=== PATIENT | male | born 1965 | race African-American/Black ===

== ENCOUNTER → 2021-07-18 02:59 | Outpatient (CLI) | payer BC, SELFPAY ==
[2021-07-18 13:02] LABS: SARS-CoV-2 RNA PCR Negative
== END ==
PROVIDERS: Visit Provider Internal Medicine Gastroenterology
DX: Z01.812 Encounter for preprocedural laboratory examination (principal); Z20.822 Contact with and (suspected) exposure to COVID-19
CPT/HCPCS: C9803; U0003; U0005

== ENCOUNTER → 2021-08-30 00:05 | Outpatient (CLI) | payer BC, SELFPAY ==
[2021-08-30 14:15] LABS: SARS-CoV-2 RNA PCR Negative
== END ==
PROVIDERS: Visit Provider Internal Medicine Gastroenterology
DX: Z01.812 Encounter for preprocedural laboratory examination (principal); Z20.822 Contact with and (suspected) exposure to COVID-19
CPT/HCPCS: C9803; U0003; U0005

== ENCOUNTER 2021-09-03 00:36 | Day surgery (SDC) | payer BC, SELFPAY ==
[2021-07-14 14:03] VITALS: BMI 25.9
--- NOTE | 2021-07-21 12:11 | SUR.PREOP ---
Patient arrived and stated he did not drink any of the prep. Stated he was confused on the instructions. Call to Dr Lizarraga- tra to discharge and schedule the patient for another day. RN went through written instructions thoroughly and patient states he will call the office to reschedule.
--- NOTE | 2021-08-21 13:29 | PC.NURSE ---
Patient states no changes in health history and no home medications. 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 Patient states he has his instructions at home and will call if he has any further questions.
[2021-09-03 10:38] VITALS: BP 105/73; PULSE 82; RESP 18; TEMP 36.2; O2SAT 100; BMI 25.7
[2021-09-03] MEDS: LACTATED RINGERS 1,000 ML 150 ML IV CONT (11:02)
--- NOTE | 2021-09-03 11:34 | WPDANESEPPF ---
Anes - Initial Pre Proc Eval Procedure: Operation Date: 09/03/21 11:30 Proposed Procedures p Screening Colonoscopy - Sanjay Faye MD Date/Time: 09/03/21 11:34 Surgeon: Sanjay Faye MD Pre Op Diagnosis: hx of colon ca Patient Data Age: 56 Gender: M Height: 1.75 m Weight: 79.2 kg Last Vital Signs Temp 97.2 F L 09/03/21 10:38 Pulse 82 09/03/21 10:38 Resp 18 09/03/21 10:38 BP 105/73 09/03/21 10:38 Pulse Ox 100 09/03/21 10:38 Allergies Allergy/AdvReac Type Severity Reaction Status Date / Time No Known Allergies Allergy Verified 09/03/21 10:46 Home Medications Medication Instructions Recorded Confirmed Type No Home Medications 07/14/21 09/03/21 History Patient hx anesthesia problems: none Family hx anesthesia problems: none Results Review: All pre-operative results and documents have been reviewed as part of the pre-operative evaluation. [facility] Social History Social History Smoking status: Never smoker Alcohol intake: never Substance use: current Substance use type: marijuana Other substance usage details: Daily Living arrangements: alone Spiritual care concerns: No Anes - Eval Final PreProcedure Day of Procedure 09/03/21 11:34 Patient weight: normal Heart: regular rate and rhythm Lungs: clear to auscultation Airway: Mallampati scale class II Neurological: alert and oriented Last oral intake: >/= 8 hours ASA classification: III Emergent: no Anesthetic plan: proceed Anesthesia type and monitoring: general GIVS and standard monitoring Results Review: All pre-operative results and documents have been reviewed as part of the pre-operative evaluation. Informed Consent: The patient's anesthetic plan and its attendant risks and benefits were discussed with the patient/family/POA. Questions were solicited and answers provided to the satisfaction of the patient/family/POA.
--- NOTE | 2021-09-03 11:48 | PM.HPGS ---
History of Present Illness History of Present Illness Consent: Risks, benefits, and alternatives have been discussed and questions answered. Patient agrees to proceed with procedure. Chief complaint: hx of colon ca Narrative: Heladio Davis is a 56 year old male with colon cancer s/p rt hemicolectomy 04/2020, did not need further treatment. Review of Systems Constitutional: Constitutional: Denies headache(s) and Denies weakness Eyes: Eyes: Denies blurry vision ENT: Reports Normal hearing present, Denies headache(s) and Denies neck pain Cardiovascular: Cardiovascular: Denies chest pain and Denies dyspnea Respiratory: Respiratory: Denies dyspnea Gastrointestinal: Gastrointestinal: Reports no additional gastrointestinal complaints Genitourinary: Genitourinary: Denies dysuria Musculoskeletal: Musculoskeletal: Denies neck pain Integumentary/Breasts: Skin/Breast: Denies dry skin Neurologic: Reports Normal hearing present, Denies headache(s) and Denies weakness Psychiatric: Psychiatric: Denies anxiety Endocrine: Endocrine: Denies change in body appearance Hematologic/Lymphatic: Hematologic/Lymphatic: Denies easy bleeding Allergic/Immunologic: Allergic/Immunologic: Denies urticaria PMFSH Past Medical History Medical History (Updated 09/03/21 @ 11:48 by Sanjay Faye MD) Colon cancer Social History Social History Smoking status: Never smoker Alcohol intake: never Substance use: current Substance use type: marijuana Other substance usage details: Daily Living arrangements: alone Spiritual care concerns: No Meds Home Medications and Allergies Home Medications Medication Instructions Recorded Confirmed Type No Home Medications 07/14/21 09/03/21 History Allergies Allergy/AdvReac Type Severity Reaction Status Date / Time No Known Allergies Allergy Verified 09/03/21 10:46 Vital Signs Vital Signs - 24 hr 09/03/21 10:38 Temperature 97.2 F L Pulse Rate 82 Respiratory Rate 18 Blood Pressure 105/73 Pulse Oximetry 100 Exam Const: General: comfortable and no acute distress HENMT: General nose exam: Normal nares present Eyes: General: appearance normal, both eyes and all related structures Neck: Neck: no JVD Resp: Auscultation: clear to auscultation bilaterally Cardio: Rate: regular rate Rhythm: regular rhythm GI: Inspection: non-distended GI Palp: Yes Soft to palpation Skin: General skin exam: normal color Neuro: General: gait normal Speech: normal speech Extrem: General: normal to inspection Psych: Mental Status: mental status grossly normal Assessment and Plan Assessment and plan (1) Colon cancer: Code(s): C18.9 - Malignant neoplasm of colon, unspecified Status: Acute Assessment and Plan: due to have colonoscopy
[2021-09-03 12:14] VITALS: BP 118/76; PULSE 82; RESP 18; O2SAT 100
[2021-09-03 12:24] VITALS: BP 109/76; PULSE 74; RESP 14; O2SAT 98
[2021-09-03 12:34] VITALS: BP 108/76; PULSE 64; RESP 12; O2SAT 100
== END 2021-09-03 12:50 | disposition home or self-care (01) ==
PROVIDERS: Visit Provider Internal Medicine Gastroenterology
PROC: 0DJD8ZZ Inspection of Lower Intestinal Tract, Via Natural or Artificial Opening Endoscopic (ICD-10-PCS; CPT 45378; principal; 2021-09-03 11:30)
DX: Z08 Encounter for follow-up examination after completed treatment for malignant neoplasm (principal); D12.4 Benign neoplasm of descending colon; K64.8 Other hemorrhoids; Z85.038 Personal history of other malignant neoplasm of large intestine; Z98.0 Intestinal bypass and anastomosis status; Z90.49 Acquired absence of other specified parts of digestive tract; F12.90 Cannabis use, unspecified, uncomplicated
CPT/HCPCS: 45385; 88305; J2704; J7120

== ENCOUNTER 2024-11-23 01:23 | Day surgery (SDC) | payer OTHER, SELFPAY ==
[2024-10-25 10:33] VITALS: BMI 23.7
--- OUTSIDE RECORDS SUMMARY | 2024-11-16 01:49 | XMS_ITS | Encounter Summary ---
Author Organization [facility] Address [address] [place] [address] Phone Care Team Providers Care Traveling Engineer Name Role Phone Provider, Unknown Primary Care Provider Unavaila ble Reason for Visit * Reason Onset Date Comments Prior Authorization 10/16/2020 CT A/P JUDI L INFO Encounter Details Date Type Department Care Team ([facility] Contact Info) Description 10/16/2020 Telephone [facility] [address] [place] [address] Wicho Joyce MD [address] [place] [address] Prior Authorization (CT A/P DENIAL INFO) Social History Tobacco Use Types Packs/Day Years Used Date Smoking Tobacco: Never Smokeless Tobacco: Never Alcohol Use Standard Drinks/Week Comments Yes 0 (1 standard drink = 0.6 oz pur e alcohol) socially PHQ-2 Answer Date Recorded Total Score - Questions 1-9 0 07/08 Sex and Gender Information Value Date Recorded Sex Assigned at Not on file 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 Joyce p2p for CT the test was denied. * Telephone Encounter - Praveen Brown RN - 10/21/2020 8:38 AM CDT Peer to Peer scheduled for Wednesday10/21/20 @ 3:[address] Mireille Leblanc. * Telephone Encounter - Praveen Bronw RN - 10/17/2020 3:40 PM CDT Images from the original note were not included. Wicho Joyce MD Whittington, Melissa J.; Cc [facility] Nurse [place] 23 hours ago (4:38 PM) MW Ok for peer to peer Message text * Telephone Encounter - Phuong De Anda - 10/16/2020 7:31 AM CDT Received denial from insurance medical office secretary on ct a/p stating imaging doesn't meet insurance medical policy. Insurance policy advises imaging is not supported for surveillance/follow up of Stage 1 colon & rectal adenocarcinoma. There is an option for for a peer to peer review. [phone] Ref#[id number] Id# [id number] How would you like to proceed? documented in this encounter Plan of Treatment Not on file documented as of this encounter Visit Diagnoses Not on filedocumented in this encounter Additional Health Concerns Assessment Noted Time PHQ-9 Depression Total Score: 0 07/23/19 3:21 PM CDT documented as of this encounter Care Teams Traveling Engineer Relationship Specialty Start Date End Date Provider, Unknown UNKNOWN PCP - General 04/30/20 documented as of this encounter
--- OUTSIDE RECORDS SUMMARY | 2024-11-16 01:49 | XMS_ITS | Clinical Summary ---
Author Organization [facility] Address [address] [place] [address] Care Team Providers Care Foot And Ankle Surgeon Name Role Phone Unavailable Primary Care Provider Unavailabl e Source Comments [facility],non-owned Affiliates and Associated Physician Practices is amultiple site organization consisting of ambulatory clinics and hospital sitesin [place], [place], [place] and [place]. This disclosure is being madepursuant to the Care Everywhere program and may not contain all information available regarding this patient. Last updated 18.[facility] Medications * Be aware that medications may not be up to date on this document. Alwaysverify current medications with the patient. ibuprofen (MOTRIN) 600 MG tablet Take 600 mg by mouth q8h PRN (Pain). 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 Gender Identity Not on file Sexual Orientation Not on file Last Filed Vital Signs Vital Sign Reading Time Taken Comments Blood Pressure 127/87 02/24/2017 8:30 AM CDT Pulse 80 02/24/2017 7:43 AM CDT Temperature 36.5 C (97.7 F) 02/24/2017 7:43 AM CDT Respiratory Rate 16 02/24/2017 7:43 AM CDT Oxygen Saturation 100% 02/24/2017 7:43 AM CDT Inhaled Oxygen Concentration - - Weight 79.4 kg (175 lb) 02/24/2017 7:43 AM CDT Height 177.8 cm (5' 10) 02/24/2017 7:43 AM CDT Body Mass Index 25.11 02/24/2017 7:43 AM CDT Plan of Treatment Health Maintenance Due Date Last Done Comments COLOGUARD (AGES 45-75) - COL ON CA SCREENING 1964 COLON MONITORING 1964 COLONOSCOPY - COLON CA SCREENING 1964 CT COLONOGRAPHY - COLON CA SCREENING 1964 Colorectal Cancer Screening 1964 FIT - COLON CA SCREENING 1964 FLEX SIG - COLON CA SCREENING 1964 LIPID TESTING 1964 HIV SCREENING 08/26/1979 HEPATITIS C SCREENING 08/21/1982 DTAP/TDAP/TD VACCINES (1 - Tdap) 08/26/1983 PNEUMOCOCCAL VACCINE 50+ (1 of 1 - PCV) 2014 ZOSTER VACCINE (1 of 2) 2014 COVID-19 VACCINE (1 - 2023-2 5 season) 2024 DEPRESSION SCREENING 05/10/2024 INFLUENZA VACCINE (Season Ended) 2025 Respiratory Syncytial Virus (RSV) Vaccine Pt: or over 60 yrs (1 - 1-dose 75+ series) 08/26/2039 HEPATITIS B VACCINE Aged Out No longe r eligible based on patient's age to complete this topic HIB VACCINE Aged Out No longer eligi ble based on patient's age to complete this topic HPV VACCINE Aged Out No longer eligi ble based on patient's age to complete this topic MENINGOCOCCAL (Group B) VACC INE SHARED DECISION-MAKING Aged Out No longer eligibl e based on patient's age to complete this topic MENINGOCOCCAL GROUPS A/C/Y/W VACCINE Aged Out No longer eligible b ased on patient's age to complete this topic
--- OUTSIDE RECORDS SUMMARY | 2024-11-16 01:49 | XMS_ITS | Clinical Summary ---
Author Organization [facility] Address [address], [facility] [address] [place] [address] Phone Care Team Providers Care Mounter Automatic Name Role Phone Provider, Unknown Primary Care Provider Unavaila ble Allergies No known active allergies Medications No known medications Active Problems Problem Noted Date Diagnosed Date Malignant neoplasm of ascending colon 10/23/2020 Family History Medical History Relation Name Comments Diabetes Maternal Grandmother Breast Cancer Mother Thyroid Cancer Mother Diabetes Sister Hypertension Sister Relation Name Status Comments Maternal Grandmother Mother Sister Social History Tobacco Use Types Packs/Day Years Used Date Smoking Tobacco: Never Smokeless Tobacco: Never Alcohol Use Standard Drinks/Week Comments Yes 0 (1 standard drink = 0.6 oz pur e alcohol) socially PHQ-2 Answer Date Recorded Total Score - Questions 1-9 0 04/09 Sex and Gender Information Value Date Recorded Sex Assigned at Not on file 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 Gender Identity Not on file Sexual Orientation Not on file Last Filed Vital Signs Vital Sign Reading Time Taken Comments Blood Pressure 120/70 04/23/2021 2:10 PM AURICULAR DETOXIFICATION SPECIALIST Pulse 91 04/23/2021 2:10 PM AURICULAR DETOXIFICATION SPECIALIST Temperature 36.1 C (97 F) 04/23/2021 2:10 PM AURICULAR DETOXIFICATION SPECIALIST Respiratory Rate 18 04/23/2021 2:10 PM AURICULAR DETOXIFICATION SPECIALIST Oxygen Saturation 98% 04/23/2021 2:10 PM AURICULAR DETOXIFICATION SPECIALIST Inhaled Oxygen Concentration - - Weight 79 kg (174 lb 1.6 oz) 04/23/2021 2:10 PM AURICULAR DETOXIFICATION SPECIALIST Height 176.5 cm (5' 9.5) 04/23/2021 2:10 PM AURICULAR DETOXIFICATION SPECIALIST Body Mass Index 25.34 04/23/2021 2:10 PM AURICULAR DETOXIFICATION SPECIALIST Plan of Treatment Health Maintenance Due Date Last Done Comments Hepatitis C Virus (HCV) Screening 1965 TdaP Immunization 1964 SARS-COV-2 Immunization (#1) 1969 Pneumococcal Immunization (5 0+ years) (1 of 2 - PCV) 08/26/1983 Zoster Immunization (1 of 2) 08/26/1983 Cologuard 2009 Colonoscopy 2009 Colorectal Cancer Screening 2009 Immunochemical Fecal Occult Blood 2009 Influenza Immunization (#1) 2025 Respiratory Syncytial Virus (RSV) Immunization (Adult) (1 - 1-dose 75+ series) 08/26/2039 Hepatitis B Immunization Aged Out No longer eligible based on patient's age to complete this topic Human Papillomavirus (HPV) Immunization Aged Out No longer eligible b ased on patient's age to complete this topic Meningococcal Immunization (ACWY) Aged Out No longer eligible based on patient's age to complete this topic Rotavirus Immunization Aged Out No lo nger eligible based on patient's age to complete this topic Insurance MEDICAID BL[place] Care Teams Mounter Automatic Relationship Specialty Start Date End Date Provider, Unknown UNKNOWN PCP - General 04/30/20
--- OUTSIDE RECORDS SUMMARY | 2024-11-16 01:49 | XMS_ITS | Encounter Summary ---
Author Organization [facility] Address [address] [place] [address] Phone Care Team Providers Care Roving Can Tender Name Role Phone Provider, Unknown Primary Care Provider Unavaila ble Encounter Details Date Type Department Care Team (Late st Contact Info) Description 10/22/2020 Telephone [facility] [address] [place] [address] Wicho Joyce MD [address] [place] [address] Social History Tobacco Use Types Packs/Day Years Used Date Smoking Tobacco: Never Smokeless Tobacco: Never Alcohol Use Standard Drinks/Week Comments Yes 0 (1 standard drink = 0.6 oz pur e alcohol) socially PHQ-2 Answer Date Recorded Total Score - Questions 1-9 0 10/08 Sex and Gender Information Value Date Recorded Sex Assigned at Not on file 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 No / Unsure 10/23/2020 9:15 AM CDT documented as of this encounter Miscellaneous Notes * Telephone Encounter - Crystal Deng - 10/22/2020 7:34 AM CDT I GOT A MESSAGE FROM [facility] THAT THE PEER TO PEER WAS DENIED BY THE INSURANCE. I DID NOTIFY THE PTAND CANCELED THE SCAN. DID YOU STILL WANT TO SEE THE PT FOR THE FOLLOW UP AND LABS? documented in this encounter Plan of Treatment Not on file documented as of this encounter Visit Diagnoses Not on filedocumented in this encounter Additional Health Concerns Assessment Noted Time PHQ-9 Depression Total Score: 0 07/23/19 21 3:21 PM CDT documented as of this encounter Care Teams Roving Can Tender Relationship Specialty Start Date End Date Provider, Unknown UNKNOWN PCP - General 04/30/20 documented as of this encounter
--- OUTSIDE RECORDS SUMMARY | 2024-11-16 01:49 | XMS_ITS | Data Portability ---
Author Organization [facility] Address [address] [place] [address] Assessment Encounter Date Assessment Date Assessment LastModified by Organization Details LastModified Time 06/08/2016 06/08/2016 Patient is clinically stable. Patient is compliant with care plan. Meds refill as needed. Education done as necessary. Follow up appointment as directed. [email or web address] Not available 06/08/2016 16:15:14 01/22/2022 01/22/2022 Pt presents as new pt for establishment of care. Routine exam, screenings and education completed: [email or web address] Not available 01/22/2022 14:27:55 Plan of Treatment Reminders Order Date Submit Date Provider Last Modified By Organization Details Last Modified Time Details Appointments None recorded. Lab HbA1c (hemoglob in A1c), blood 2020 021 [email or web address] In-Office Order, Internal Use Only DO Not Attach Compendium DO Not Attach Compendium, Do Not Delete/merge, [id number] 11:23:33 HbA1c (hemoglob in A1c), blood 2016 017 [facility] (Lab), [address], [place], [address], 7 07:13:49 cholester ol, total, serum 2016 [facility]17 [facility] [address], [place], [address], 7 20:43:59 PSA, complexed , serum or plasma 2016 017 [facility] (Lab), [address], [place], [address], 7 14:17:43 BMP, serum or plasma 2016 017 [facility] (Lab), [address], [place], [address], 7 20:44:54 RPR (rapid plasma reagin), serum 2016 017 [facility], [address], [address], [place], [address], 7 09:15:36 HIV (1+2) Ab screen, serum 2016 017 [facility], [address] [place] [address], [address], [place], [address], 7 08:23:51 hepatitis C Ab, signal-to -cutoff, serum or plasma 2016 017 [facility], [address], [address], [place], [address], 7 09:15:38 Referral ophthalmo logist referral 2021 022 [facility], [address] [place], [address], 2 15:55:11 podiatris t referral 2020 021 [email or web address] [facility], [address], [place], [address], 1 16:34:47 gastroent erologist referral 2016 017 [email or web address] Not available 11:55:14 Procedures None recorded. Surgeries None recorded. Imaging XR, toe(s), 2 or more view 2020 021 [facility] Scheduling, [address] [facility], [place], [address], 11:40:12 Medication Orders None recorded. Patient TargetsNo targets recorded. Patient Instructions Encounter Date Encounter Id Patient Instructions Last Modified By Organization Details Last Modified Time 02/13/2021 [id number] I personally saw and evaluated this patient together with the resident. I was present and available in the Family Medicine clinic to discuss this patient's care for the duration of the appointment. I agree with the resident's assessment and plan as documented with the following addendum: None. Dr. Esha Toledo MD Attending Physician. [email or web address] Not available 02/13/2021 12:28:27 01/22/2022 [id number] A healthy lifestyle: care instructions [email or web address] Not available 01/22/2022 14:19:26 body mass index: care instructions [email or web address] Not available 01/22/2022 14:19:26 -Patient instructed to call office with changes in condition -Pt instructed to present to the ED or urgent care with urgent concerns or urgent changes in condition. [email or web address] Not available 01/22/2022 14:18:54 -Discussed POC -Pt to follow up with routine f/u visit as discussed; RTC PRN and ANNUAL VISITS [email or web address] Not available 01/22/2022 14:19:09 Reason for Referral Referring Physician: Bruno Palacios, Internal Medicine, Encounter Date: 06/08/2016 Planned Giving Officer Referral for Pain of toe of left foot Referring Physician: Caden Harris, Crocodile Farmer, Encounter Date: 02/13/2021 Network Systems Integrator Referral for Blurring of visual image Referring Physician: Jeanie Massey, Family Medicine, Encounter Date: 01/22/2022 Results Created Date Observation Date Name Description Value Unit Range Abnormal Flag Note LastModifiedBy Organization Detail LastModifiedTime 06/08/19 17 06/08/2016 edy stero l, total , serum cholestrol 165.0 mg/dL 140.0- 200.0 Not Available [facility] (Lab) [address] [place], [address], 06/08/2016 20:43:59 06/08/19 17 06/08/2016 BMP, serum or plasm a glucose, serum 97 mg/dL 65-99 Not Available [facility] (Lab) [address], [place], [address], 06/08/2016 20:44:54 06/08/19 17 06/08/2016 BMP, serum or plasm a BUN 12 mg/dL 8-26 Not Available [facility] (Lab) [address] [place], [address], 06/08/2016 20:44:54 06/08/19 17 06/08/2016 BMP, serum or plasm a creat 1.00 mg/dL 0.50-1 .40 Not Available [facility] (Lab) [address] [place], [address], 06/08/2016 20:44:54 06/08/19 17 06/08/2016 BMP, serum or plasm a BUN/creatnin e ratio 12.0 Not Available [facility] (Lab) [address], [place], [address], 06/08/2016 20:44:54 06/08/19 17 06/08/2016 BMP, serum or plasm a sodium, serum 140.0 mEq/L 136.0- 144.0 Not Available [facility] (Lab) [address] [place], [address], 06/08/2016 20:44:54 06/08/19 17 06/08/2016 BMP, serum or plasm a potassium, serum 4.4 mmol/ L 3.5-5. 3 Not Available [facility] (Lab) [address] [place], [address], 06/08/2016 20:44:54 06/08/19 17 06/08/2016 BMP, serum or plasm a chloride, serum 101 mmol/ l 101-11 1 Not Available [facility] (Lab) [address] [place], [address], 06/08/2016 20:44:54 06/08/19 17 06/08/2016 BMP, serum or plasm a carbon dioxide total 28.6 mmol/ L 21.0-3 2.0 Not Available [facility] (Lab) [address] [place], [address], 06/08/2016 20:44:54 06/08/19 17 06/08/2016 BMP, serum or plasm a aniongp 15.0 mmol/ L Not Available [facility] (Lab) [address], [place], [address], 06/08/2016 20:44:54 06/08/19 17 06/08/2016 BMP, serum or plasm a calcium, serum 9.5 mg/dL 8.2-10 .0 Not Available [facility] (Lab) [address] [place], [address], 06/08/2016 20:44:54 06/08/19 17 06/08/2016 BMP, serum or plasm a osmol 279.0 mOsm/ L Not Available [facility] (Lab) [address], [place], [address], 06/08/2016 20:44:54 06/08/19 17 06/08/2016 BMP, serum or plasm a eGFR, AM 102 m/lmi n/1.7 3_m2 >=60 Not Available [facility] (Lab) [address] [place], [address], 06/08/2016 20:44:54 06/08/19 17 06/08/2016 BMP, serum or plasm a eGFR, non- AM 84 mL/mi n/1.7 3/m2 >=60 Not Available [facility] (Lab) [address], [place], [address], 06/08/2016 20:44:54 06/08/19 17 06/09/2016 HbA1c (hemo globi n A1c), blood hemoglobin A1C 5.9 % 4.8-5. 6 high . Pre-d iabet es: 5.7 - 6.4 Diabe ryan: >6.4 Glyce kenan contr ol for adult s with diabe ryan: <7.0 Not Available [facility] (Lab) [address] [place], [address], 06/09/2016 07:13:49 06/08/19 17 06/09/2016 HIV (1+2) Ab scree n, serum HIV 4TH generation Non Reacti ve non reacti ve Not Available [facility] (Lab) [address] [facility], [place], [address], 06/09/2016 08:23:51 06/08/19 17 06/09/2016 RPR (rapi d plasm a reagi n), serum RPR Non Reacti ve non reacti ve Not Available [facility] (Lab) [address] [facility], [place], [address], 06/09/2016 09:15:36 06/08/19 17 06/09/2016 hepat itis C virus Ab, serum hep C virus Ab <0.1 s/co_ ratio 0.0-0. 9 Negat tasha: < 0.8 Indet ermin ate: 0.8 - 0.9 Posit tasha: > 0.9 . The CDC recom mends that a posit tasha HCV antib orville resul t be follo wed up with a HCV Nucle ic Acid Ampli ficat ion test (5507 13). Not Available [facility] (Lab) [address] [facility], [place], [address], 06/09/2016 09:15:38 06/08/19 17 06/09/2016 PSA, compl exed, serum or plasm a PSA, complexed 0.5 NG/mL 0.0-3. 6 [facility] ) Metho dolog y . Resul ts for this test shoul d not be used as absol francesca evide nce of prese nce or absen ce of malig nant disea se witho ut confi rmati on of the diagn osis by other medic ally estab lishe d diagn ostic produ ct or proce dure. Value s obtai khanh with diffe rent metho ds or kits canno t be used inter [facility] . Not Available [facility] (Lab) [address] [place], [address], 06/09/2016 14:17:43 02/14/20 21 02/13/2021 HbA1c (hemo globi n A1c), blood HbA1c 5.8 Not Available In-Office Order Internal Use Only DO Not Attach Compendium DO Not Attach Compendium, Do Not Delete/merge, [id number] 02/13/2021 10:49:37 01/21/20 21 xr thumb RT 3V [facility] [place] [address] IMAGIN G NILS S: XR THUMB RT 3V DATE: 10:55 AM HISTOR Y: pain 55-yea r-old male with thumb pain for 2 weeks. Clicki ng sensat ion in the interp halang eal joint. No known specif ic injury . COMPAR ROSENDO: None. DISCUS UYEN and IMPRES UYEN: AP, obliqu e, and latera l views of the right thumb. Mild degene rative change s at the thumb metaca rpal phalan geal joint and interp halang eal joint. No appare nt acute fractu re or disloc ation. No erosio n or perios teal reacti on. Referr ed By: DINA OLGUIN Electr onical ly Signed By: Josiah Herrmann on 11:04 AM Interp reted By: Josiah Herrmann , 11:02 AM sherry [facility] [address] [facility], [place], [address], 01/20/2021 17:20:45 02/14/20 21 xr multi toe lt [facility] [place] [address] Examin ation: Left toes ACCESS ION: [id number] Exam date/t christine: 10:52 AM Reason For Exam: pain of toe Compar rosendo: None Techni que: 3 views of the second third and fourth left toes Findin gs: Minima l spurri ng the metata rsal phalan geal and interp halang eal joints is noted. No eviden ce of fractu re or disloc ation is seen. No erosiv e change s noted. ===== IMPRES UYEN:= ==== Minima l osteoa rthrit is of the toes. ====== ====== ====== === Referr ed By: Jeri mccoy ly Signed By: Parth Izaguirre MD on 4:02 PM Interp reted By: Parth Izaguirre MD, 4:[address], [place], [address], 01/22/2022 17:02:30 Result Notes None recorded. Problems Name Problem SNOMED Code Status Onset Date Resolution Date Notes Provider Name and Address Organization Details Recorded Time Body mass index 25-29 - overweight 030383460 Active DUANE LOMBARDO Attn: [address] [place], [address], [facility] 14:19:18 History of malignant neoplasm of colon 526910847 Active 022 DUANE LOMBARDO Attn: Ryley g,[address] [place], [address], [facility] 2 14:27:30 Problem Notes None recorded. Procedures Surgical History Date Name Laterality Status Provider Name and Address Organization Details Recorded Time 05/10/19 Arthroscopic Surgery completed Wilber Palacios MD Attn: Accounting,[address] [place], [address], [facility] 06/08/2016 16:03:38 05/08/20 surgical biopsy of colon completed Pedro Londono MA [facility] 01/22/2022 14:12:16 04/08/20 Xcapsl ctrc rmvl cplx wo ecp completed Pedro Londono MA [facility] 01/22/2022 14:12:47 Imaging Results None recorded. Procedure Notes None recorded. Medical Equipment None Reported. Allergies No known drug allergies Medications Name Sig Start Date Stop Date Status Note LastModified by Organization Details LastModified Time ofloxacin 0.3 % eye drops active Not Available Not Available Not Available hydrocodone 5 mg-acetamin ophen 325 mg tablet TAKE 1 TO 2 TABLETS BY MOUTH EVERY 6 HOURS NEEDED 02/13 completed Not Available Not Available Not Available amoxicillin 500 mg tablet TAKE 1 TABLET BY MOUTH EVERY 8 HOURS UNTIL ALL TAKEN active Not Available Not Available No t Available ketorolac 0.5 % eye drops active Not Available Not Available Not Available prednisolon e acetate 1 % eye drops,suspe nsion SHAKE LIQUID AND INSTILL 1 DROP IN LEFT EYE THREE TIMES DAILY. START DROPS AFTER SURGERY DIRECTED active Not Available Not Available No t Available polymyxin B sulfate 10,000 unit-trimet hoprim 1 mg/mL eye drops INSTILL 1 DROP IN LEFT EYE THREE TIMES DAILY. START DROP 2 DAYS BEFORE SURGERY DIRECTED 02/13 completed Not Available Not Available Not Available ibuprofen 600 mg tablet TAKE 1 TABLET BY MOUTH EVERY 6 HOURS NEEDED FOR PAIN active Not Available Not Available No t Available methylpredn isolone 4 mg tablets in a dose pack 02/13 completed Not Available Not Available Not Available Vitals Date Recorded Body height Body weight Body mass index (BMI) Body temperature Systolic And Diastolic Provider Name and Address Organization Details Last Updated DateTime 06/08/2016 176.53 cm 84260.47 g 26.1 kg/m2 98.3 [degF] 128/74 mm[Hg] Megan Jimenes [facility] 15:53:36 Date Recorded Body weight Body mass index (BMI) Provider Name and Address Organization Details Last Updated DateTime 01/22/2022 31170.69 g 25.1 kg/m2 DUANE LOMBARDO Attn: Accounting,[address] [facility], [place], [address], [facility] 01/22/2022 14:18:46 Date Recorded Body height Body temperature Oxygen saturation Oxygen saturation in Arterial blood by Pulse oximetry Heart rate Systolic And Diastolic Provider Name and Address Organization Details Last Updated DateTime 2 176.53 cm 97.1 [degF] 99 % 99 % 82 /min 118/80 mm[Hg] Pedro Londono MA [facility] 2 14:14:42 Date Recorded Body weight Body temperature Heart rate Oxygen saturation Oxygen saturation in Arterial blood by Pulse oximetry Systolic And Diastolic Provider Name and Address Organization Details Last Updated DateTime 1 [address]20.5 2 g 98.6 [degF] 86 /min 98 % 98 % 112/62 mm[Hg] Faustina Herr MA [facility] 1 10:39:22 Social History Question Answer Notes LastModified by Organizat ion Details LastModified Time Tobacco Smoking Status Never Smoker Wilber Palacios MD Attn: [facility],[address] [place], [address], [facility] 06/08/2016 16:04:37 How Many Years Have You Consumed Alcohol? 30 Information not available 01/22/2022 Are You Blind Or Do You Have Difficulty Seeing? Yes Information n ot available 01/22/2022 What Is Your Level Of Caffeine Consumption? Occasional Information not available 01/22/2022 In The 14 Days Before Symptom Onset, Have You Had Close Contact With A Laboratory-confirm ed COVID-19 While That Case Was Ill? No Information n ot available 01/22/2022 In The 14 Days Before Symptom Onset, Have You Had Close Contact With A Person Who Is Under Investigation For COVID-19 While That Person Was Ill? No Information not available 01/22/2022 Have You Been To An Area Known To Be High Risk For COVID-19? No Information not available 01/22/2022 Are You Deaf Or Do You Have Serious Difficulty Hearing? No Information not available 01/22/2022 What Type Of Diet Are You Following? REGULAR Information n ot available 01/22/2022 What Was The Date Of Your Most Recent Tobacco Screening? 01/22/2022 Information not available 01/22/2022 How Many Children Do You Have? 5 Information not available 01/22/2022 Do You Use Protection During Sex? Always Information not available 01/22/2022 What Is Your Relationship Status? Single Information not available 01/22/2022 Are You Sexually Active? Yes Information not available 01/22/2022 Sex: Unknown Functional Status Question Answer Note LastModified by Organizat ion Details LastModified Time Do you use any illicit or recreational drugs? No Information not available 01/22/2022 Do you or have you ever used any other forms of tobacco or nicotine? No Information not available 01/22/2022 What is your level of alcohol consumption? Occasional Information not available 01/22/2022 Do you or have you ever used smokeless tobacco? Never used smokeless tobacco [email or web address] Information not available 02/13/2021 Are you currently employed? Yes Information not available 01/22/2022 Are you able to care for yourself? 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 Never used electronic cigarettes Information not available 01/22/2022 What is your exercise level? Occasional Information not available 01/22/2022 Mental Status None recorded. Family History Relationship Description Onset Age of this Age Resolved Age Notes LastModified by Organization Details LastModified Time Maternal Grandmother Hypertensive disorder 63 [email or web address] Not available 2016 16:05:21 Mother Malignant tumor of breast 35 [email or web address] Not available 2016 16:05:45 Medical History No medical history recorded. Past Encounters Encounter ID Performer Location Encounter Start Date Encounter Closed Date Diagnosis/Indication Diagnosis SNOMED-CT Code Diagnosis ICD10 Code Diagnosis Note [id number] MD Surinder Jacobson [facility] (Adult Med) [address] [place] [address] 06/08/2016 14:49:21 06/11/2016 10:26:06 Low back strain 146129328 S39.012A local analgesia and heat. Resolved High risk sexual behavior 387657926 Z72.51 multiple sexual partner Screening for malignant neoplasm of colon 079286001 Z12.11 [id number] ESHA TOLEDO MD [facility] [address] [facility] [address] [place] [address] 02/13/2021 10:03:11 02/14/2021 12:06:22 Trigger finger of right hand 5237865010 9341368 M65.30 Patient has reduced active and passive ROM. No hx of trauma to the area. There are no other joints in body affected and no systemic symptoms. Physical exam was not consistent with ganglion cyst, giant cell tumor of tendon sheath. He most likely has underlying mild osteoathri tis based on xray done in january. Because he does not have passive ROM, he will schedule an appointmen t today with a hand surgeon. He already has referral for this from urgent care visit. Diabetes m ellitus screening 725409711 Z13.1 Last A1c in 2016 was prediabete s at 5.9. Today a1c was 5.8. He was instructed to continue good diet and exercsie habits. Pain of to e of left foot 0776637684 89536 M79.675 There is pain on palpation and discolorat ion on exam. This is located on the tip of third digit only. He has no trauma to the area. Because it is a gradual pain with no initiating factors, there is concern for underlying melanoma or SCC of the toe. We also consider a callous with underlying ecchymosis .-xray today of left toes-podia try referral to assess for potential biopsy of lesion [id number] DUANE LOMBARDO [address] [place] [address] 01/22/2022 13:54:23 01/23/2022 10:55:55 Adult health examination 650310264 Z00.00 -PE complete-A dvised in routine care for current age-Pt stable Overweight 425941664 E66 .3 -Pt advised of BMI -Pt encouraged to eat a plant-base d diet, minimizing processed foods and portion control -Pt advised on the recommenda tions for routine exercise History of malignant neoplasm of colon 097407132 Z85.038 -Pt followed by GI with resection (no ostomy) (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 Pt endorses he was to have the OD completed where he had completed pre-op only to be informed he required a referral-F urther eval and management as outlined Health Concerns Section Related Observation LastModified by Organization Detai ls LastModified Time None Recorded Concern Status LastModified by Organization Details LastModified Time None Recorded Advance Directives Directive None Recorded Payers Insurance Date Sequence Insurance Name Policy Number Policy Gonzalez Covered Member ID Gonzalez Member ID Guarantor Name 09/28/2023 1 [facility] (MEDICAID REPLACEMENT - HMO) [id number] [facility] [id number] [facility] 12/03/2021 1 [facility] (MEDICAID HMO) [id number] [facility] [id number] [facility] Notes Date Note Type Note Provider Name and Address Organization Details Recorded Time 06/08/2016 text/html Patient is here for follow up. He does not have a pcp. Patient fell about a week ago and pull back muscle. Patient was seen in er and diagnosed with strain. He was treated with ibuprofen and is doing well. No radicular sxs.Patient has no history of heart diseas. Patient is sexual active without protection with one partner. Wilber Palacios MD Attn: Accounting[address] [place], [address], [facility] 06/17/2016 23:39:50 02/13/2021 text/html FootReported bypatient.Location: left; 3RD digit on tip Quality:dull; deep Severity:moderate Duration:continuous since onset; unable to tell when it exactly started Timing:cannot identify Context:cannot identify Alleviating Factors:nothing helps Aggravating Factors:weightbeari ng; exercise; moving around in shoe but not hurting when he walks Associated Symptoms:numbness;t ingling;ecchymosis Previous Surgery:none Prior Imaging:none Previous Injections:none Previous PT:none Work Related:no Working:noHand/Fing ersReported bypatient.Hand Dominance:right Location:right; 1 digit Quality:aching; superficial Severity:pain level 6/10; worst pain 8/10 Duration:1.5 months; continuous since onset Timing:gradual Context:cannot identify Alleviating Factors:heat; tried a course of oral steroids that helped Aggravating Factors:gripping; grasping; ROM; cold weather; cold makes it worse Associated Symptoms:no weakness; no numbness; no tingling; no swelling; no redness; no warmth; no ecchymosis;popping/ clicking;grinding;r adiating to thumb/index/middle Previous Surgery:none Prior Imaging:x ray; degenerative changes of right 1ST mcp Previous Injections:none Previous PT:none Work Related:no ESHA TOLEDO MD Attn: Accounting[address] [place], [address], [facility] 02/13/2021 12:28:32 01/22/2022 text/html Pt is a presenti ng today in the establishment of care with this site. Pt agrees to vaccinations and screenings as outlined in file. Pt endorses hx of: COLON CA (FOLLOWED BY GI), CATARACTS (BILAT) AND IS OVERWEIGHT. Denies acute concerns today. DUANE LOMBARDO Attn: Accounting[address] [place], [place], [address] [place] [address], [facility] 01/22/2022 17:03:46
--- OUTSIDE RECORDS SUMMARY | 2024-11-16 01:49 | XMS_ITS | Encounter Summary ---
Author Organization [facility] Address [address] [place] [address] Phone Care Team Providers Care Digital Proofing And Platemaker Name Role Phone Provider, Unknown Primary Care Provider Unavaila ble Encounter Details Date Type Department Care Team (Late st Contact Info) Description 10/21/2020 Telephone [facility] [address] [place] [address] Wicho Joyce MD [address] [place] [address] Social History Tobacco Use Types Packs/Day Years Used Date Smoking Tobacco: Never Smokeless Tobacco: Never Alcohol Use Standard Drinks/Week Comments Yes 0 (1 standard drink = 0.6 oz pur e alcohol) socially PHQ-2 Answer Date Recorded Total Score - Questions 1-9 0 10/08 Sex and Gender Information Value Date Recorded Sex Assigned at Not on file 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 No / Unsure 10/23/2020 9:15 AM CDT documented as of this encounter Miscellaneous Notes * Telephone Encounter - Crystal Deng - 10/21/2020 9:05 AM CDT PER [facility] P[facility] CT SCAN IS GETTING A PEER TO PEER THIS AFTERNOON AT 330PM SO THAT WOULD NOT WORK TOGET THIS COMPLETED AT 1:30. PT IS RESCHEDULED FOR LABS,CT, AND OV IS RESCHEDULED TO [facility] 10/23. documented in this encounter Plan of Treatment Not on file documented as of this encounter Visit Diagnoses Not on filedocumented in this encounter Additional Health Concerns Assessment Noted Time PHQ-9 Depression Total Score: 0 07/23/19 21 3:21 PM CDT documented as of this encounter Care Teams Digital Proofing And Platemaker Relationship Specialty Start Date End Date Provider, Unknown UNKNOWN PCP - General 04/30/20 documented as of this encounter
--- OUTSIDE RECORDS SUMMARY | 2024-11-16 01:49 | XMS_ITS | Clinical Summary ---
Author Organization [facility] Address [address] [place] [address] Care Team Providers Care Edge Worker Name Role Phone Kamran Osuna MD Primary Care Provider Allergies No known active allergies Medications methylPREDNISol one, MAGO, 4 MG tablet 6 TABLETS ON DAY ONE, 5 TABLETS DAY TWO, 4 TABLETS DAY THREE, 3 TABLETS DAY FOUR, 2 TABLETS DAY FIVE, AND 1 TABLET DAY SIX 1 each 01/20/2021 Active Active Problems Problem Noted Date Diagnosed Date Mass of colon 04/27/2020 Appendicitis 04/26/2020 Family History Medical History Relation Comments Cancer Mother Relation Status Comments Mother Social History Tobacco Use Types Packs/Day Years Used Date Smoking Tobacco: Never Smokeless Tobacco: Never Alcohol Use Standard Drinks/Week Comments Yes 0 (1 standard drink = 0.6 oz pur e alcohol) occasionaly 3 xs /month Sex and Gender Information Value Date Recorded Sex Assigned at Not on file 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 Gender Identity Not on file Sexual Orientation Not on file Last Filed Vital Signs Vital Sign Reading Time Taken Comments Blood Pressure 118/63 01/20/2021 10:46 AM CDT Pulse 73 01/20/2021 10:46 AM CDT Temperature 36.5 C (97.7 F) 01/20/2021 10:46 AM CDT Respiratory Rate 20 01/20/2021 10:46 AM CDT Oxygen Saturation 100% 01/20/2021 10:46 AM CDT Inhaled Oxygen Concentration - - Weight 74.8 kg (165 lb) 01/20/2021 10:46 AM CDT Height 177.8 cm (5' 10) 01/20/2021 10:46 AM CDT Body Mass Index 23.68 01/20/2021 10:46 AM CDT Plan of Treatment Health Maintenance Due Date Last Done Comments Annual Physical 08/26/1968 Hepatitis C 1982 DTaP, Tdap and Td Vaccines ( 1 - Tdap) 08/26/1983 Pneumococcal Vaccine: 50+ Ye ars (1 of 1 - PCV) 2014 Zoster Vaccines (1 of 2) 2014 COVID-19 Vaccine (1 - 2023-2 5 season) 2024 Colorectal Cancer Screening Colonoscopy (10 Years) 04/29/2030 04/29/2020 RSV Immunization or 60+ Years (1 - 1-dose 75+ series) 08/26/2039 Meningococcal B Vaccine Aged Out No l onger eligible based on patient's age to complete this topic Meningococcal Vaccine Aged Out No maria m mariana eligible based on patient's age to complete this topic RSV Immunizations Under 20 Months Aged Out No longer eligible based on patient's age to complete this topic Insurance [employer] Advance Directives * Full Code (Latest Code Status on File) Date Activated Date Inactivated Comments 04/26/2020 11:49 PM 05/07/2020 3:15 PM Care Teams Edge Worker Relationship Specialty Start Date End Date Kamran Osuna MD PCP - General FAMILY PRACTICE 05/02/20
--- NOTE | 2024-11-16 13:22 | SUR.PREOP ---
Patient did not arrive for his procedure- he states he had a family emergency. He was forwarded to dental scheduler.
--- NOTE | 2024-11-17 11:33 | PC.NURSE ---
Spoke with patient in regards to his rescheduled procedure. Confirmed with him his new date and time and he also confirmed that he has had no change in medical hx or his medications since we spoke with him last.
--- OUTSIDE RECORDS SUMMARY | 2024-11-23 01:25 | XMS_ITS | Clinical Summary ---
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 Gender Identity Not on file Sexual Orientation Not on file Last Filed Vital Signs Vital Sign Reading Time Taken Comments Blood Pressure 120/70 04/23/2021 2:10 PM AUTOMATIC PATTERN EDGER Pulse 91 04/23/2021 2:10 PM AUTOMATIC PATTERN EDGER Temperature 36.1 C (97 F) 04/23/2021 2:10 PM AUTOMATIC PATTERN EDGER Respiratory Rate 18 04/23/2021 2:10 PM AUTOMATIC PATTERN EDGER Oxygen Saturation 98% 04/23/2021 2:10 PM AUTOMATIC PATTERN EDGER Inhaled Oxygen Concentration - - Weight 79 kg (174 lb 1.6 oz) 04/23/2021 2:10 PM AUTOMATIC PATTERN EDGER Height 176.5 cm (5' 9.5) 04/23/2021 2:10 PM AUTOMATIC PATTERN EDGER Body Mass Index 25.34 04/23/2021 2:10 PM AUTOMATIC PATTERN EDGER Plan of Treatment Health Maintenance Due Date [...] Insurance MEDICAID [place] Care Teams Halftone Operator Relationship Specialty Start Date End Date Provider, Unknown UNKNOWN PCP - General 04/30/20
--- OUTSIDE RECORDS SUMMARY | 2024-11-23 01:25 | XMS_ITS | Clinical Summary ---
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
--- OUTSIDE RECORDS SUMMARY | 2024-11-23 01:25 | XMS_ITS | Data Portability ---
Author [facility] Address [address] [place] [address] Assessment Encounter Date Assessment Date Assessment LastModified [...] HbA1c (hemoglob in A1c), blood 2020 021 [email or web address] In-Office Order, Internal Use Only DO Not Attach Compendium DO Not Attach Compendium, Do Not Delete/merge, [id number] 11:23:33 HbA1c (hemoglob in A1c), blood 2016 017 [facility] (Lab), [address], [place], [address], 7 07:13:49 cholester ol, total, serum 2016 017 [email or web address] [address], [place], [address], 7 20:43:59 PSA, complexed , serum or plasma 2016 017 [facility] (Lab), [address], [place], [address], 7 14:17:43 BMP, serum or plasma 2016 017 [facility] (Lab), [address], [place], [address], 7 20:44:54 RPR (rapid plasma reagin), serum 2016 017 [facility], [address], [address], [place], [address], 7 09:15:36 HIV (1+2) Ab screen, serum 2016 017 [facility], [address] [place] [address], [address], [place], [address], 7 08:23:51 hepatitis C Ab, signal-to -cutoff, serum or plasma 2016 017 [facility], [address], [address], [place], [address], 7 09:15:38 Referral ophthalmo logist referral 2021 022 [facility] [employer] [facility], [address] [place], [address], 2 15:55:11 podiatris t referral 2020 021 [email or web address] [facility], [address], [place], [address], 1 16:34:47 gastroent erologist referral 2016 017 [email or web address] Not available 11:55:14 Procedures None recorded. Surgeries None recorded. Imaging XR, toe(s), 2 or more view 2020 021 [facility] Scheduling, [address] [facility], [place], [address], 11:40:12 Medication Orders None recorded. Patient TargetsNo targets recorded. Patient Instructions Encounter Date Encounter Id Patient Instructions Last Modified By Organization Details Last Modified Time 02/13/2021 [id number] I personally saw and evaluated this patient together with the resident. I was present and available in the Family Medicine clinic to discuss this patient's care for the duration of the appointment. I agree with the resident's assessment and plan as documented with the following addendum: None. Dr. Esha Toledo MD Attending Physician. [email or web address] Not available 02/13/2021 12:28:27 01/22/2022 [id number] A healthy lifestyle: care instructions tmond Not [...] Bruno Palacios, Internal Medicine, Encounter Date: 06/08/2016 [employer] Referral for Pain of toe of left foot Referring Physician: Caden Harris, Hat Forming Machine Operator, Encounter Date: 02/13/2021 Candle [employer] Referral for Blurring of visual image Referring Physician: Jeanie Massey, Family Medicine, Encounter Date: 01/22/2022 Results Created Date Observation Date Name Description Value Unit Range Abnormal Flag Note LastModifiedBy Organization Detail LastModifiedTime 06/08/19 17 06/08/2016 edy stero l, total , serum cholestrol 165.0 mg/dL 140.0- 200.0 Not Available [facility] (Lab) [address] [place], [address], 06/08/2016 20:43:59 06/08/19 17 06/08/2016 BMP, serum or plasm a glucose, serum 97 mg/dL 65-[address] [facility] (Lab) [address], [place], [address], 06/08/2016 20:44:54 06/08/19 17 06/08/2016 BMP, serum or plasm a BUN 12 mg/dL 8-[address] [facility] (Lab) [address] [place], [address], 06/08/2016 20:44:54 06/08/19 17 06/08/2016 BMP, serum or plasm a creat 1.00 mg/dL 0.50-1 .40 Not Available [facility] (Lab) [address] [place], [address], 06/08/2016 20:44:54 06/08/19 17 06/08/2016 BMP, serum or plasm a BUN/creatnin e ratio 12.0 Not Available [facility] (Lab) [address], [place], [address], 06/08/2016 20:44:54 06/08/19 17 06/08/2016 BMP, serum or plasm a sodium, serum 140.0 mEq/L 136.0- 144.0 Not Available [facility] (Lab) [address] [place], [address], 06/08/2016 20:44:54 06/08/19 17 06/08/2016 BMP, serum or plasm a potassium, serum 4.4 mmol/ L 3.5-5. 3 Not Available [facility] (Lab) [address] [place], [address], 06/08/2016 20:44:54 06/08/19 17 06/08/2016 BMP, serum or plasm a chloride, serum 101 mmol/ l 101-11 1 Not Available [facility] (Lab) [address] [place], [address], 06/08/2016 20:44:54 06/08/19 17 06/08/2016 BMP, serum or plasm a carbon dioxide total 28.6 mmol/ L 21.0-3 2.0 Not Available [facility] (Lab) [address] [place], [address], 06/08/2016 20:44:54 06/08/19 17 06/08/2016 BMP, serum or plasm a aniongp 15.0 mmol/ L Not Available [facility] (Lab) [address], [place], [address], 06/08/2016 20:44:54 06/08/19 17 06/08/2016 BMP, serum or plasm a calcium, serum 9.5 mg/dL 8.2-10 .0 Not Available [facility] (Lab) [address] [place], [address], 06/08/2016 20:44:54 06/08/19 17 06/08/2016 BMP, serum or plasm a osmol 279.0 mOsm/ L Not Available [facility] (Lab) [address], [place], [address], 06/08/2016 20:44:54 06/08/19 17 06/08/2016 BMP, serum or plasm a eGFR, AM 102 m/lmi n/1.7 3_m2 >=60 Not Available [facility] (Lab) [address] [place], [address], 06/08/2016 20:44:54 06/08/19 17 06/08/2016 BMP, serum or plasm a eGFR, non- AM 84 mL/mi n/1.7 3/m2 >=60 Not Available [facility] (Lab) [address], [place], [address], 06/08/2016 20:44:54 06/08/19 17 06/09/2016 HbA1c (hemo globi n A1c), blood hemoglobin A1C 5.9 % 4.8-5. 6 high . Pre-d iabet es: 5.7 - 6.4 Diabe ryan: >6.4 Glyce kenan contr ol for adult s with diabe ryan: <7.0 Not Available [facility] (Lab) [address] [place], [address], 06/09/2016 07:13:49 06/08/19 17 06/09/2016 HIV (1+2) Ab scree n, serum HIV 4TH generation Non Reacti ve non reacti ve Not Available [facility] (Lab) [address] [facility], [place], [address], 06/09/2016 08:23:51 06/08/19 17 06/09/2016 RPR (rapi d plasm a reagi n), serum RPR Non Reacti ve non reacti ve Not Available [facility] (Lab) [address] [facility], [place], [address], 06/09/2016 09:15:36 06/08/19 17 06/09/2016 hepat itis [...] ficat ion test (5507 13). Not Available [facility] (Lab) [address] [facility], [place], [address], 06/09/2016 09:15:38 06/08/19 17 06/09/2016 PSA, compl exed, serum or plasm a PSA, complexed 0.5 NG/mL 0.0-3. 6 [facility] ilumi [facility] Metho dolog y . Resul ts [...] or kits canno t be used inter [facility] . Not Available [facility] (Lab) [address] [place], [address], 06/09/2016 14:17:43 02/14/20 21 02/13/2021 HbA1c (hemo globi n A1c), blood HbA1c 5.8 Not Available In-Office Order Internal Use Only DO Not Attach Compendium DO Not Attach Compendium, Do Not Delete/merge, [id number] 02/13/2021 10:49:37 01/21/20 21 xr thumb RT 3V [facility] [place] [address] IMAGIN G NILS S: XR THUMB RT [...] By: Josiah Herrmann , 11:02 AM sherry [facility] [address] [facility], [place], [address], 01/20/2021 17:20:45 02/14/20 21 xr multi toe lt [facility] [place] [address] Examin ation: Left toes ACCESS ION: [id number] Exam date/t christine: 10:52 AM Reason [...] reted By: Parth Izaguirre MD, 4:[address], [place], [address], 01/22/2022 17:02:30 Result Notes None recorded. Problems Name Problem SNOMED Code Status Onset Date Resolution Date Notes Provider Name and Address Organization Details Recorded Time Body mass index 25-29 - overweight 375220969 Active DUANE LOMBARDO Attn: Luispanda g,[address] [place], [address], [facility] 14:19:18 History of malignant neoplasm of colon 896071698 Active 022 DUANE LOMBARDO Attn: Ryley g,[address] [place], [address], [facility] 2 14:27:30 Problem Notes None recorded. Procedures Surgical History Date Name Laterality Status Provider Name and Address Organization Details Recorded Time 05/10/19 Arthroscopic Surgery completed Wilber Palacios MD Attn: Accounting,[address] [place], [address], [facility] 06/08/2016 16:03:38 05/08/20 surgical biopsy of colon completed Pedro Londono MA [facility] 01/22/2022 14:12:16 04/08/20 Xcapsl ctrc rmvl cplx wo ecp completed Pedro Londono MA [facility] 01/22/2022 14:12:47 Imaging Results None recorded. Procedure [...] Details Last Updated DateTime 06/08/2016 176.53 cm 22570.47 g 26.1 kg/m2 98.3 [degF] 128/74 mm[Hg] Megan Jimenes [facility] 15:53:36 Date Recorded Body weight Body mass index (BMI) Provider Name and Address Organization Details Last Updated DateTime 01/22/2022 22872.69 g 25.1 kg/m2 DUANE LOMBARDO Attn: Accounting,[address] [facility], [place], [address], [facility] 01/22/2022 14:18:46 Date Recorded Body height Body temperature Oxygen saturation Oxygen saturation in Arterial blood by Pulse oximetry Heart rate Systolic And Diastolic Provider Name and Address Organization Details Last Updated DateTime 2 176.53 cm 97.1 [degF] 99 % 99 % 82 /min 118/80 mm[Hg] Pedro Londono MA [facility] 2 14:14:42 Date Recorded Body weight Body temperature Heart rate Oxygen saturation Oxygen saturation in Arterial blood by Pulse oximetry Systolic And Diastolic Provider Name and Address Organization Details Last Updated DateTime 1 [address]120.5 2 g 98.6 [degF] 86 /min 98 % 98 % 112/62 mm[Hg] Faustina Herr MA [facility] 1 10:39:22 Social History Question Answer Notes LastModified by Organizat ion Details LastModified Time Tobacco Smoking Status Never Smoker Wilber Palacios MD Attn: [facility],[address] [place], [address], [facility] 06/08/2016 16:04:37 How Many Years Have You [...] not available 01/22/2022 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 Resolved High risk sexual behavior 891552728 Z72.51 multiple sexual partner Screening for malignant neoplasm of colon 885651233 Z12.11 [id number] ESHA TOLEDO MD [facility] [address] [facility] [address] [place] [address] 02/13/2021 10:03:11 02/14/2021 12:06:22 Trigger finger of right hand 9783202742 5941420 M65.30 Patient has reduced active and passive [...] urgent care visit. Diabetes m ellitus screening 135110940 Z13.1 Last A1c in 2016 was prediabete s at 5.9. Today a1c was 5.8. He was instructed to continue good diet and exercsie habits. Pain of to e of left foot [id number] 56680 M79.675 There is pain on palpation and [...] to assess for potential biopsy of lesion [id number] DUANE LOMBARDO [address] [place] [address] 01/22/2022 13:54:23 01/23/2022 10:55:55 Adult health examination 254674942 Z00.00 -PE complete-A dvised in routine care for current age-Pt stable Overweight 309161066 E66 .3 -Pt advised of BMI -Pt encouraged to eat a plant-base d diet, minimizing processed foods and portion control -Pt advised on the recommenda tions for routine exercise History of malignant neoplasm of colon 397241804 Z85.038 -Pt followed by GI with resection (no ostomy) (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 Wilber Palacios MD Attn: Accounting,[address] [place], [address], [facility] 06/17/2016 23:39:50 02/13/2021 text/html FootReported [...] Related:no ESHA TOLEDO MD Attn: Accounting[address] [place], [address], [facility] 02/13/2021 12:28:32 01/22/2022 text/html Pt is a presenti ng today in the establishment of care with this site. Pt agrees to vaccinations and screenings as outlined in file. Pt endorses hx of: COLON CA (FOLLOWED BY GI), CATARACTS (BILAT) AND IS OVERWEIGHT. Denies acute concerns today. DUANE LOMBARDO Attn: Accounting[address] [place], [address] [place] [address], [facility] 01/22/2022 17:03:46
--- OUTSIDE RECORDS SUMMARY | 2024-11-23 01:25 | XMS_ITS | Encounter Summary ---
Author Organization [facility] Address [address] [place] [address] Phone Care Team Providers Care Physiotherapy Aide Name Role Phone Provider, Unknown Primary Care Provider Unavaila ble Encounter Details Date Type Department Care Team (Late st Contact Info) Description 10/22/2020 Telephone [facility] [address] [place] [address] Wicho Joyce MD [address] [place] [address] Social History Tobacco Use Types Packs/Day Years Used Date Smoking Tobacco: Never Smokeless Tobacco: Never Alcohol Use Standard Drinks/Week Comments Yes 0 (1 standard drink = 0.6 oz pur e alcohol) socially PHQ-2 Answer Date Recorded Total Score - Questions 1-9 0 10/08 Sex and Gender Information Value Date Recorded Sex Assigned at Not on file 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
--- OUTSIDE RECORDS SUMMARY | 2024-11-23 01:25 | XMS_ITS | Encounter Summary ---
Author Organization [facility] Address [address] [place] [address] Phone Care Team Providers Care Sports Editor Name Role Phone Provider, Unknown Primary Care Provider Unavaila ble Encounter Details Date Type Department Care Team (Late st Contact Info) Description 10/21/2020 Telephone [facility] [address] [place] [address] Wicho Joyce MD [address] [place] [address] Social History Tobacco Use Types Packs/Day Years Used Date Smoking Tobacco: Never Smokeless Tobacco: Never Alcohol Use Standard Drinks/Week Comments Yes 0 (1 standard drink = 0.6 oz pur e alcohol) socially PHQ-2 Answer Date Recorded Total Score - Questions 1-9 0 10/08 Sex and Gender Information Value Date Recorded Sex Assigned at Not on file 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
--- OUTSIDE RECORDS SUMMARY | 2024-11-23 01:25 | XMS_ITS | Clinical Summary ---
Author Organization [facility] Address [address] [facility] [place] [address] Care Team Providers Care Threat Monitoring Analyst Name Role Phone Unavailable Primary Care Provider Unavailabl e Source Comments [facility],non-owned Affiliates and Associated Physician Practices is amultiple site organization consisting of ambulatory clinics and hospital sitesin [place], [place], [place] and [place]. This disclosure is being madepursuant to the Care Everywhere program and may not contain all information available regarding this patient. Last updated 18.[facility] Medications * Be aware that medications may [...] on file Legal Sex Male 5:24 PM VOICE WRITING REPORTER Gender Identity Not on file Sexual Orientation [...] season) 2024 DEPRESSION SCREENING 05/10/2024 INFLUENZA VACCINE (#1) 2025 Respiratory Syncytial Virus (RSV) Vaccine Pt: [...]
--- OUTSIDE RECORDS SUMMARY | 2024-11-23 01:25 | XMS_ITS | Encounter Summary ---
Author Organization [facility] Address [address] [place] [address] Phone Care Team Providers Care Industrial Electrician Name Role Phone Provider, Unknown Primary Care Provider Unavaila ble Reason for Visit * Reason Onset Date Comments Prior Authorization 10/16/2020 CT A/P JUDI L INFO Encounter Details Date Type Department Care Team ([facility] Contact Info) Description 10/16/2020 Telephone [facility] [address] [place] [address] Wicho Joyce MD [address] [place] [address] Prior Authorization (CT A/P DENIAL [...] on file Legal Sex Male 4:26 PM [employer]LOOR [employer] Gender Identity Not on file Sexual Orientation [...] Mireille Leblanc. * Telephone Encounter - Praveen Brown RN - 10/17/2020 3:40 PM CDT Images from the original note were not included. Wicho Joyce MD Whittington, Melissa J.; Cc [facility] Nurse [place] 23 hours ago (4:38 PM) MW Ok for peer to peer Message text * Telephone Encounter - Phuong De Anda - 10/16/2020 7:31 AM CDT Received denial from insurance medical investigator on ct a/p stating imaging doesn't meet insurance medical policy. Insurance policy advises imaging is not supported for surveillance/follow up of Stage 1 colon & rectal adenocarcinoma. There is an option for for a peer to peer review. [phone] Ref#[id number] Id# [id number] How would you like to proceed? documented in this encounter Plan of Treatment Not on file documented as of this encounter Visit Diagnoses Not on filedocumented in this encounter Additional Health Concerns Assessment Noted Time PHQ-9 Depression Total Score: 0 07/23/19 3:21 PM CDT documented as of this encounter Care Teams Industrial Electrician Relationship Specialty Start Date End Date Provider, Unknown UNKNOWN PCP - General 04/30/20 documented as of this encounter
[2024-11-23 09:10] VITALS: BP 121/89; PULSE 74; RESP 18; TEMP 36.3; O2SAT 100; BMI 24.7
--- NOTE | 2024-11-23 09:35 | P.PNAN_ITS ---
Anes - Initial Pre Proc Eval Procedure: Operation Date: 11/23/24 10:30 Proposed Procedures p Colonoscopy - Sanjay Faye MD Date/Time: 11/23/24 09:35 Surgeon: Sanjay Faye MD Pre Op Diagnosis: Personal history of colon polyps, unspecified Patient Data Age: 59 Gender: M Height: 1.78 m Weight: 78.2 kg Last Vital Signs Temp 97.3 F L 11/23/24 09:10 Pulse 74 11/23/24 09:10 Resp 18 11/23/24 09:10 BP 121/89 11/23/24 09:10 Pulse Ox 100 11/23/24 09:10 O2 Del Method Room Air 11/23/24 09:10 Allergies Allergy/AdvReac Type Severity Reaction Status Date / Time No Known Allergies Allergy Verified 11/23/24 09:09 Home Medications ?Medication ?Instructions ?Recorded ?Confirmed ?Type No Home Medications 07/14/21 10/25/24 History Patient hx anesthesia problems: none Family hx anesthesia problems: none Results Review: All pre-operative results and documents have been reviewed as part of the pre- operative evaluation. [facility] Past Medical History Medical History Colon cancer Social History Social History Smoking status: Never smoker Alcohol intake: current Drinks per week: 3 Substance use: current Substance use type: does not use Other substance usage details: Daily Living arrangements: with family Spiritual care concerns: No Anes - Eval Final PreProcedure Day of Procedure 11/23/24 09:35 Patient weight: normal Lungs: normal air movement Airway: Mallampati scale class II Neurological: alert and oriented Last oral intake: >/= 8 hours ASA classification: II Emergent: no Anesthetic plan: proceed Anesthesia type and monitoring: general GIVS and standard monitoring Results Review: All pre-operative results and documents have been reviewed as part of the pre- operative evaluation. Cannabis user, daily, hx of colon ca. Informed Consent: The patient's anesthetic plan and its attendant risks and benefits were discussed with the patient/family/POA. Questions were solicited and answers provided to the satisfaction of the patient/family/POA.
--- NOTE | 2024-11-23 10:10 | PM.HPGS ---
History of Present Illness History of Present Illness Consent: Risks, benefits, and alternatives have been discussed and questions answered. Patient agrees to proceed with procedure. Chief complaint: Personal history of colon polyps, unspecified Narrative: Heladio Davis is a 59 year old male with colon cancer s/p rt hemicolectomy 04/2020, last colonoscopy 2021 Review of Systems Review of Systems: All systems reviewed & are unremarkable except as noted in HPI and below PMFSH Past Medical History Medical History (Updated 11/23/24 @ 10:12 by Sanjay Faye MD) History of colon cancer Colon cancer Social History Social History Smoking status: Never smoker Alcohol intake: current Drinks per week: 3 Substance use: current Substance use type: does not use Other substance usage details: Daily Living arrangements: with family Spiritual care concerns: No Meds Home Medications and Allergies Home Medications ?Medication ?Instructions ?Recorded ?Confirmed ?Type No Home Medications 07/14/21 10/25/24 History Allergies Allergy/AdvReac Type Severity Reaction Status Date / Time No Known Allergies Allergy Verified 11/23/24 09:09 Vital Signs Vital Signs - 24 hr 11/23/24 09:10 Temperature 97.3 F L Pulse Rate 74 Respiratory Rate 18 Blood Pressure 121/89 Pulse Oximetry 100 Oxygen Delivery Room Air Exam Const: General: comfortable and no acute distress HENMT: Face/Nose/Sinus: Normal nares present Eyes: General: appearance normal, both eyes and all related structures Neck: Neck: no JVD Resp: Auscultation: clear to auscultation bilaterally Cardio: Rate: regular rate Rhythm: regular rhythm GI: Inspection: non-distended GI Palp: Yes Soft to palpation Skin: General skin exam: normal color Neuro: Speech: normal speech Extrem: General: normal to inspection Psych: Mental Status: mental status grossly normal Assessment and Plan Assessment and plan (1) History of colon cancer: Code(s): Z85.038 - Personal history of other malignant neoplasm of large intestine Status: Acute Assessment and Plan: colonoscopy
--- NOTE | 2024-11-23 10:25 | S_PTH ---
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
[2024-11-23] MEDS: LACTATED RINGERS 1,000 ML 150 ML IV CONT (10:26)
[2024-11-23 10:28] VITALS: BP 129/90; PULSE 89; RESP 16; O2SAT 100
[2024-11-23 10:38] VITALS: BP 120/70; PULSE 77; RESP 17; O2SAT 100
[2024-11-23 10:48] VITALS: BP 113/63; PULSE 68; RESP 16; O2SAT 100
== END 2024-11-23 11:10 | disposition home or self-care (01) ==
PROVIDERS: Referring Provider Internal Medicine Gastroenterology; Visit Provider Internal Medicine Gastroenterology
PROC: 0DJD8ZZ Inspection of Lower Intestinal Tract, Via Natural or Artificial Opening Endoscopic (ICD-10-PCS; CPT 45378; principal; 2024-11-23 10:30)
DX: Z08 Encounter for follow-up examination after completed treatment for malignant neoplasm (principal); D12.5 Benign neoplasm of sigmoid colon; K64.8 Other hemorrhoids; Z85.038 Personal history of other malignant neoplasm of large intestine; Z98.0 Intestinal bypass and anastomosis status; Z90.49 Acquired absence of other specified parts of digestive tract
CPT/HCPCS: 45380; 88305; J2003; J2704; J7120